=== PATIENT | male | born 1970 | race Caucasian/White ===

== ENCOUNTER 2022-05-11 22:32 | Emergency (ER) | payer SELFPAY ==
[~2022-05-11] VITALS: Ht 180.3 cm; Wt 108.9 kg
[2022-05-11 22:51] VITALS: BP 139/71
--- NOTE | 2022-05-11 22:58 | NUR ---
PT TO 5
--- NOTE | 2022-05-11 23:18 | NUR ---
Patient being evaluated by physician at bedside.
[2022-05-11] MEDS ORDERED: LIDOCAINE 1% 500 MG/ 50 ML VIAL INJ ONE (23:25)
[2022-05-11] MEDS ORDERED: LIDOCAINE MPF 1% 0 ML ONE (23:45)
--- NOTE | 2022-05-12 00:16 | NUR ---
PT TO CT
--- NOTE | 2022-05-12 01:20 | NUR ---
ERMD AT BEDSIDE
[2022-05-12 01:30] VITALS: BP 139/71
--- NOTE | 2022-05-12 01:30 | NUR ---
Patient discharged with v/s stable. Written and verbal after care instructions given and explained. Patient verbalized understanding. Ambulatory with steady gait. All questions addressed prior to discharge. Advised to follow up with PMD.
== END 2022-05-12 01:30 | disposition home or self-care (01) ==
LOC: MED 22:32
DX: S01.91XA Laceration without foreign body of unspecified part of head, initial encounter (principal); F10.129 Alcohol abuse with intoxication, unspecified; Y90.9 Presence of alcohol in blood, level not specified; Y04.8XXA Assault by other bodily force, initial encounter; Y93.89 Activity, other specified; Y92.89 Other specified places as the place of occurrence of the external cause; Y99.8 Other external cause status
CPT/HCPCS: 12013; 70450; 90471; 90715; 99284; J2001